=== PATIENT | female | born 1960 | race Caucasian/White ===

== ENCOUNTER 2017-02-09 17:02 | Inpatient (IN) | payer MEDICARE, MEDICAID ==
[~2017-02-09] VITALS: Ht 162.6 cm; Wt 69.8 kg
[~2017-02-09 17:02] MED LIST: ADDERALL XR20 MG PO; ALPRAZOLAM1 M3 OR; ATENOLOL25 MG PO; DILAUDID 2MG2 MG/TA1 PO; DOXEPIN HCL25 MG OR; DOXYCYCL HYC100 MG PO; HYDROCHLORO25 MG/TAB PO; HYDROCHLOROT25 MG PO; HYDROXYZ HCL25 MG PO; LITHIUM CARB300 MG PO; LYRICA50 MG PO; MELOXICAM7.5 MG PO; METHADONE HCL10 MG PO; METHADOSE10 M1 PO; OXYCOD-APAP1 TA1 PO; PHENERGAN25 MG/TAB PO; SAPHRIS5 MG SL; TRAMADOL HCL50 MG PO; TRILEPTAL150 M1 OR; TRILEPTAL300 M1 OR; XANAX1 MG PO; ZOFRAN4 MG/TAB PO
[2017-02-09] MEDS ORDERED: MELOXICAM15 MG PO (18:04)
[2017-02-09] MEDS ORDERED: NEURONTIN300 MG PO (18:14)
[2017-02-09] MEDS ORDERED: ALPRAZOLAM1 MG PO (18:14)
[2017-02-09] MEDS ORDERED: VENTOLIN H108 MCG/AC IN (18:15)
[2017-02-09] MEDS ORDERED: FUROSEMIDE20 MG PO (18:15)
[2017-02-09] MEDS ORDERED: ADDERALL XR20 MG PO (18:16)
[2017-02-09] MEDS ORDERED: TEMAZEPAM30 MG PO (18:17)
[2017-02-09] MEDS ORDERED: VIIBRYD40 MG PO (18:17)
[2017-02-09] MEDS ORDERED: SIMVASTATIN20 MG PO (18:17)
[2017-02-09] MEDS ORDERED: EMBEDA 30-1.2 M1 CAP PO (18:18)
[2017-02-09 18:37] LABS: HEMATOCRIT 23.5 % (37.0-47.0); HEMOGLOBIN 7.3 g/dl (12.0-16.0); IMMATURE GRANULOCYTES 0.3 % (0.0-1.0); MEAN CELL VOLUME 91.1 fL CALC (80.0-100.0); MEAN CORPUSCULAR HGB 28.3 pG CALC (26.0-32.0); MEAN CORPUSCULAR HGB CONC 31.1 g/L CALC (32.0-36.0); NEUT# 5.06 thou/uL (2.00-7.15); RED BLOOD COUNT 2.58 mill/uL (4.20-5.60); RED CELL DISTRI WIDTH 15.7 % (11.5-15.5)
[2017-02-09 18:39] LABS: URINE BILIRUBIN - DIPSTICK NEGATIVE (NEGATIVE); URINE BLOOD DIPSTICK NEGATIVE (NEGATIVE); URINE CLARITY CLEAR; URINE COLOR YELLOW; URINE GLUCOSE - DIPSTICK NEGATIVE (NEGATIVE); URINE KETONE NEGATIVE (NEGATIVE); URINE LEUK ESTERASE NEGATIVE (NEGATIVE); URINE NITRITE - DIPSTICK NEGATIVE (Negative); URINE PROTEIN - DIPSTICK NEGATIVE (NEG-TRACE); URINE UROBILINOGEN - DIPSTICK 0.2 E.U./dL (0.2)
[2017-02-09 18:43] LABS: COCAINE NEGATIVE (NEGATIVE); METHADONE NEGATIVE (NEGATIVE); TETRAHYDROCANNABIONOL NEGATIVE (NEGATIVE)
[2017-02-09 18:44] LABS: BARBITURATES NEGATIVE (NEGATIVE); OXCYCODONE NEGATIVE (NEGATIVE); TRICYLIC ANTIDEPRESSANTS NEGATIVE (NEGATIVE)
[2017-02-09 18:49] LABS: INTERNATIONAL NORMALIZED RATIO 0.9 RATIO (0.7-1.3); PROTHROMBIN TIME 10.2 SECONDS (9.0-12.5)
[2017-02-09 18:50] LABS: ALBUMIN 4.3 g/dL (3.2-5.0); ALKALINE PHOSPHATASE 164 u/l (38-126); ANION GAP 13 (6-22 (CALC)); BILIRUBIN, TOTAL 0.2 mg/dL (0.0-1.4); BUN 12 mg/dL (7-17); BUN/CREATININE RATIO 12 (12-20 (CALC)); CALCIUM 9.4 mg/dL (8.4-10.2); CARBON DIOXIDE 23 mmol/l (22-30); CHLORIDE 104 mmol/l (95-108); GFR 58 ML/MIN (>=60 (CALC)); GFR FOR AFR.AMER. > 60 ML/MIN (>=60 (CALC)); GLUCOSE 103 mg/dL (65-105); POTASSIUM 4.4 mmol/l (3.5-5.1); SGOT/AST 23 u/l (14-36); SGPT/ALT 26 u/l (9-52); SODIUM 135 mmol/l (137-146); TOTAL PROTEIN 7.5 g/dL (6.3-8.2)
[2017-02-09 18:58] LABS: MYOGLOBIN 32 ng/mL (0 - 62)
[2017-02-09 19:49] LABS: HEMATOCRIT 22.9 % (37.0-47.0); HEMOGLOBIN 7.1 g/dl (12.0-16.0)
[2017-02-09 22:44] VITALS: BP 131/76
[2017-02-09 22:55] VITALS: BP 141/75
[2017-02-09 23:26] VITALS: BP 114/69
[2017-02-10] VITALS (11 sets, daily range): BP systolic 103–149; BP diastolic 44–82
[2017-02-10 09:22] LABS: HEMATOCRIT 37.8 % (37.0-47.0); HEMOGLOBIN 12.5 g/dl (12.0-16.0); MEAN CELL VOLUME 85.1 fL CALC (80.0-100.0); MEAN CORPUSCULAR HGB 28.2 pG CALC (26.0-32.0); MEAN CORPUSCULAR HGB CONC 33.1 g/L CALC (32.0-36.0); RED BLOOD COUNT 4.44 mill/uL (4.20-5.60)
[2017-02-10 10:35] LABS: ANION GAP 16 (6-22 (CALC)); BUN 11 mg/dL (7-17); BUN/CREATININE RATIO 13 (12-20 (CALC)); CALCIUM 9.5 mg/dL (8.4-10.2); CARBON DIOXIDE 26 mmol/l (22-30); CHLORIDE 100 mmol/l (95-108); CREATININE 0.8 mg/dL (0.5-1.0); GFR > 60 ML/MIN (>=60 (CALC)); GFR FOR AFR.AMER. > 60 ML/MIN (>=60 (CALC)); GLUCOSE 108 mg/dL (65-105); MAGNESIUM 1.8 mg/dL (1.6-2.3); POTASSIUM 4.5 mmol/l (3.5-5.1); SODIUM 138 mmol/l (137-146)
[2017-02-10] MEDS ORDERED: PRILOSEC20 MG PO (13:41)
[2017-02-10] MEDS ORDERED: MIRALAX3350 NF PO (13:41)
[2017-02-10] MEDS ORDERED: FERROUS SULF325 M2 PO (13:41)
[2017-02-10] MEDS ORDERED: COLACE100 MG PO (13:41)
[2017-02-10 14:24] LABS: HEMATOCRIT 37.2 % (37.0-47.0)
== END 2017-02-10 16:05 | disposition home or self-care (01) | DRG 812 ==
LOC: ENPENDDIS → ED 17:02 → ED-I 20:20 → ED 20:54 → MS2 20:55
PROVIDERS: Emergency Medicine; Internal Medicine; ADMIT Internal Medicine; ATTEND Internal Medicine
PROC: 30233N1 Transfusion of Nonautologous Red Blood Cells into Peripheral Vein, Percutaneous Approach (ICD-10-PCS; principal; 2017-02-09)
PROC: 30233N1 Transfusion of Nonautologous Red Blood Cells into Peripheral Vein, Percutaneous Approach (ICD-10-PCS; 2017-02-10)
PROC: 30233N1 Transfusion of Nonautologous Red Blood Cells into Peripheral Vein, Percutaneous Approach (ICD-10-PCS; 2017-02-10)
DX: D50.0 Iron deficiency anemia secondary to blood loss (chronic) (principal); N17.9 Acute kidney failure, unspecified; E87.1 Hypo-osmolality and hyponatremia; M41.9 Scoliosis, unspecified; K92.1 Melena; K59.00 Constipation, unspecified; F41.1 Generalized anxiety disorder; F32.9 Major depressive disorder, single episode, unspecified; M54.30 Sciatica, unspecified side; M19.90 Unspecified osteoarthritis, unspecified site; G89.4 Chronic pain syndrome; E86.1 Hypovolemia; F17.210 Nicotine dependence, cigarettes, uncomplicated; Z76.5 Malingerer [conscious simulation]
CPT/HCPCS: J1756; P9016

== ENCOUNTER 2017-02-14 19:49 | Emergency (ER) | payer MEDICARE, MEDICAID ==
[~2017-02-14] VITALS: Ht 162.6 cm; Wt 69.4 kg
[~2017-02-14 19:49] MED LIST changes: +ALPRAZOLAM1 MG PO; +COLACE100 MG PO; +EMBEDA 30-1.2 M1 CAP PO; +FERROUS SULF325 M2 PO; +FUROSEMIDE20 MG PO; +MELOXICAM15 MG PO; +MIRALAX3350 NF PO; +NEURONTIN300 MG PO; +PRILOSEC20 MG PO; +SIMVASTATIN20 MG PO; +TEMAZEPAM30 MG PO; +VENTOLIN H108 MCG/AC IN; +VIIBRYD40 MG PO
[2017-02-14 20:54] LABS: HEMATOCRIT 38.2 % (37.0-47.0); IMMATURE GRANULOCYTES 0.2 % (0.0-1.0); MEAN CELL VOLUME 89.3 fL CALC (80.0-100.0); MEAN CORPUSCULAR HGB CONC 31.4 g/L CALC (32.0-36.0); NEUT# 2.97 thou/uL (2.00-7.15); RED BLOOD COUNT 4.28 mill/uL (4.20-5.60); RED CELL DISTRI WIDTH 16.6 % (11.5-15.5)
[2017-02-14 21:08] LABS: ALBUMIN 4.4 g/dL (3.2-5.0); ALKALINE PHOSPHATASE 127 u/l (38-126); ANION GAP 15 (6-22 (CALC)); BILIRUBIN, TOTAL 0.3 mg/dL (0.0-1.4); BUN 11 mg/dL (7-17); BUN/CREATININE RATIO 15 (12-20 (CALC)); CALCIUM 9.8 mg/dL (8.4-10.2); CARBON DIOXIDE 26 mmol/l (22-30); CHLORIDE 103 mmol/l (95-108); CREATININE 0.8 mg/dL (0.5-1.0); GFR > 60 ML/MIN (>=60 (CALC)); GFR FOR AFR.AMER. > 60 ML/MIN (>=60 (CALC)); GLUCOSE 85 mg/dL (65-105); POTASSIUM 3.5 mmol/l (3.5-5.1); SGOT/AST 21 u/l (14-36); SGPT/ALT 29 u/l (9-52); SODIUM 141 mmol/l (137-146); TOTAL PROTEIN 7.8 g/dL (6.3-8.2)
[2017-02-14 21:33] VITALS: BP 110/62
== END 2017-02-14 21:39 | disposition home or self-care (01) ==
LOC: ED 19:49
PROVIDERS: Emergency Medicine
DX: R53.1 Weakness (principal); D64.9 Anemia, unspecified; G89.4 Chronic pain syndrome; F17.210 Nicotine dependence, cigarettes, uncomplicated

== ENCOUNTER 2017-02-21 11:51 | Emergency (ER) | payer MEDICARE, MEDICAID | END 2017-02-21 12:05 | disposition left against medical advice (07) | LOC: ED 11:51 → LWOBS 12:05 | DX: Z91.19 Patient's noncompliance with other medical treatment and regimen (principal) ==

== ENCOUNTER 2017-03-29 14:48 | Inpatient (IN) | payer MEDICARE, MEDICAID ==
[~2017-03-29] VITALS: Ht 160 cm; Wt 70.4 kg
[~2017-03-29 14:48] MED LIST changes: -DILAUDID 2MG2 MG/TA1 PO; +DILAUDID4 MG PO
[2017-03-29 15:09] LABS: HEMATOCRIT 38.8 % (37.0-47.0); HEMOGLOBIN 12.4 g/dl (12.0-16.0); IMMATURE GRANULOCYTES 0.2 % (0.0-1.0); MEAN CELL VOLUME 90.2 fL CALC (80.0-100.0); MEAN CORPUSCULAR HGB 28.8 pG CALC (26.0-32.0); NEUT# 1.65 thou/uL (2.00-7.15); RED BLOOD COUNT 4.3 mill/uL (4.20-5.60); RED CELL DISTRI WIDTH 18.1 % (11.5-15.5)
[2017-03-29 15:24] LABS: ALBUMIN 4.2 g/dL (3.2-5.0); ALKALINE PHOSPHATASE 123 u/l (38-126); ANION GAP 19 (6-22 (CALC)); BILIRUBIN, TOTAL 0.3 mg/dL (0.0-1.4); BUN 6 mg/dL (7-17); BUN/CREATININE RATIO 7 (12-20 (CALC)); CALCIUM 9.1 mg/dL (8.4-10.2); CARBON DIOXIDE 27 mmol/l (22-30); CHLORIDE 104 mmol/l (95-108); ETHYL ALCOHOL 171 mg/dl (0-30); GFR 58 ML/MIN (>=60 (CALC)); GFR FOR AFR.AMER. > 60 ML/MIN (>=60 (CALC)); GLUCOSE 98 mg/dL (65-105); POTASSIUM 3.9 mmol/l (3.5-5.1); SGOT/AST 23 u/l (14-36); SGPT/ALT 28 u/l (9-52); SODIUM 146 mmol/l (137-146); TOTAL PROTEIN 7.4 g/dL (6.3-8.2)
[2017-03-29 15:35] LABS: MYOGLOBIN 41 ng/mL (0 - 62)
[2017-03-29 15:56] LABS: URINE BILIRUBIN - DIPSTICK NEGATIVE (NEGATIVE); URINE BLOOD DIPSTICK NEGATIVE (NEGATIVE); URINE CLARITY CLEAR; URINE COLOR YELLOW; URINE GLUCOSE - DIPSTICK NEGATIVE (NEGATIVE); URINE KETONE NEGATIVE (NEGATIVE); URINE LEUK ESTERASE NEGATIVE (NEGATIVE); URINE NITRITE - DIPSTICK NEGATIVE (Negative); URINE PROTEIN - DIPSTICK NEGATIVE (NEG-TRACE); URINE SPECIFIC GRAVITY <=1.005; URINE UROBILINOGEN - DIPSTICK 0.2 E.U./dL (0.2)
[2017-03-29 16:00] LABS: BARBITURATES NEGATIVE (NEGATIVE); COCAINE NEGATIVE (NEGATIVE); METHADONE NEGATIVE (NEGATIVE); OXCYCODONE NEGATIVE (NEGATIVE); TETRAHYDROCANNABIONOL NEGATIVE (NEGATIVE); TRICYLIC ANTIDEPRESSANTS NEGATIVE (NEGATIVE)
[2017-03-29 21:47] VITALS: BP 148/87
[2017-03-29 23:50] VITALS: BP 117/77
[2017-03-30 03:55] VITALS: BP 140/78
[2017-03-30 07:20] VITALS: BP 141/83
[2017-03-30 08:22] VITALS: BP 141/83
== END 2017-03-30 10:00 | disposition home or self-care (01) | DRG 315 ==
LOC: ED 14:48 → ED-I 19:49 → ED 21:06 → ICU 21:07
PROVIDERS: Emergency Medicine; ADMIT Internal Medicine; ATTEND Internal Medicine
PROC: 0T9B70Z Drainage of Bladder with Drainage Device, Via Natural or Artificial Opening (ICD-10-PCS; principal; 2017-03-29)
DX: I95.9 Hypotension, unspecified (principal); E87.2 Acidosis; F10.129 Alcohol abuse with intoxication, unspecified; I10 Essential (primary) hypertension; D50.9 Iron deficiency anemia, unspecified; F32.9 Major depressive disorder, single episode, unspecified; E86.0 Dehydration; F17.210 Nicotine dependence, cigarettes, uncomplicated; J44.9 Chronic obstructive pulmonary disease, unspecified; G47.30 Sleep apnea, unspecified; E78.5 Hyperlipidemia, unspecified; K21.9 Gastro-esophageal reflux disease without esophagitis; G89.4 Chronic pain syndrome; Y90.6 Blood alcohol level of 120-199 mg/100 ml

== ENCOUNTER 2017-04-27 16:55 | Emergency (ER) | payer MEDICARE, MEDICAID ==
[~2017-04-27] VITALS: Ht 160 cm; Wt 70.0 kg
[2017-04-27 17:07] VITALS: BP 60/35
== END 2017-04-27 17:10 | disposition left against medical advice (07) ==
LOC: ED 16:55 → LWOBS 17:10
DX: Z91.19 Patient's noncompliance with other medical treatment and regimen (principal)

== ENCOUNTER 2017-09-12 11:05 | Emergency (ER) | payer MEDICARE, MEDICAID ==
[~2017-09-12] VITALS: Ht 160 cm; Wt 70.4 kg
[2017-09-12 11:12] VITALS: BP 1212/69
== END 2017-09-12 11:22 | disposition left against medical advice (07) ==
LOC: ED 11:05 → LWOBS 11:22
DX: Z91.19 Patient's noncompliance with other medical treatment and regimen (principal)

== ENCOUNTER 2017-12-16 13:42 | Inpatient (IN) | payer MEDICARE, MEDICAID ==
[~2017-12-16] VITALS: Ht 160 cm; Wt 66.4 kg
[2017-12-16 14:46] LABS: HEMATOCRIT 40.2 % (37.0-47.0); HEMOGLOBIN 14.1 g/dl (12.0-16.0); IMMATURE GRANULOCYTES 0.7 % (0.0-1.0); MEAN CORPUSCULAR HGB 32.1 pG CALC (26.0-32.0); MEAN CORPUSCULAR HGB CONC 35.1 g/L CALC (32.0-36.0); NEUT# 6.03 thou/uL (2.00-7.15); RED BLOOD COUNT 4.39 mill/uL (4.20-5.60); RED CELL DISTRI WIDTH 12.4 % (11.5-15.5)
[2017-12-16 14:55] LABS: ALBUMIN 4.9 g/dL (3.2-5.0); ALKALINE PHOSPHATASE 161 u/l (38-126); BILIRUBIN, TOTAL 1.2 mg/dL (0.0-1.4); BUN 10 mg/dL (7-17); BUN/CREATININE RATIO 16 (12-20 (CALC)); CREATININE 0.6 mg/dL (0.5-1.0); GFR > 60 ML/MIN (>=60 (CALC)); GFR FOR AFR.AMER. > 60 ML/MIN (>=60 (CALC)); SGPT/ALT 91 u/l (9-52); TOTAL PROTEIN 8.4 g/dL (6.3-8.2)
[2017-12-16 14:57] LABS: SODIUM 126 mmol/l (137-146)
[2017-12-16 14:58] LABS: ANION GAP 29 (6-22 (CALC)); CARBON DIOXIDE 13 mmol/l (22-30); CHLORIDE 87 mmol/l (95-108); POTASSIUM 3.1 mmol/l (3.5-5.1); SGOT/AST 116 u/l (14-36)
[2017-12-16 15:10] LABS: MEAN CELL VOLUME 91.6 fL CALC (80.0-100.0)
[2017-12-16 15:22] LABS: BARBITURATES NEGATIVE (NEGATIVE); COCAINE NEGATIVE (NEGATIVE); METHADONE NEGATIVE (NEGATIVE); OXCYCODONE NEGATIVE (NEGATIVE); TETRAHYDROCANNABIONOL NEGATIVE (NEGATIVE); TRICYLIC ANTIDEPRESSANTS NEGATIVE (NEGATIVE)
[2017-12-16 18:20] VITALS: BP 135/90
[2017-12-16 20:19] LABS: MAGNESIUM 1.7 mg/dL (1.6-2.3)
[2017-12-16 20:27] LABS: CHOLESTEROL HDL RATIO 1.5 (<4.4 (CALC))
[2017-12-16 22:00] VITALS: BP 107/74
[2017-12-17 04:26] VITALS: BP 108/78
[2017-12-17 05:02] LABS: IMMATURE GRANULOCYTES 0.2 % (0.0-1.0); MEAN CELL VOLUME 91.5 fL CALC (80.0-100.0); MEAN CORPUSCULAR HGB 32.5 pG CALC (26.0-32.0); MEAN CORPUSCULAR HGB CONC 35.5 g/L CALC (32.0-36.0); NEUT# 3.37 thou/uL (2.00-7.15); RED BLOOD COUNT 3.63 mill/uL (4.20-5.60); RED CELL DISTRI WIDTH 12.6 % (11.5-15.5)
[2017-12-17 05:19] LABS: BUN 7 mg/dL (7-17); BUN/CREATININE RATIO 17 (12-20 (CALC)); CREATININE 0.4 mg/dL (0.5-1.0); GFR > 60 ML/MIN (>=60 (CALC)); GFR FOR AFR.AMER. > 60 ML/MIN (>=60 (CALC)); MAGNESIUM 1.8 mg/dL (1.6-2.3); POTASSIUM 3.3 mmol/l (3.5-5.1)
[2017-12-17 05:25] LABS: ANION GAP 15 (6-22 (CALC))
[2017-12-17 05:26] LABS: CARBON DIOXIDE 23 mmol/l (22-30); CHLORIDE 98 mmol/l (95-108); SODIUM 133 mmol/l (137-146)
[2017-12-17 05:45] LABS: HEMOGLOBIN 11.8 g/dl (12.0-16.0)
[2017-12-17 05:46] LABS: HEMATOCRIT 33.2 % (37.0-47.0)
[2017-12-17 08:07] VITALS: BP 115/76
[2017-12-17 11:00] VITALS: BP 105/70
[2017-12-17 17:59] VITALS: BP 116/79
[2017-12-17 20:25] VITALS: BP 105/80
[2017-12-18 00:45] VITALS: BP 98/68
[2017-12-18 04:40] VITALS: BP 99/69
[2017-12-18 06:24] LABS: HEMATOCRIT 33.6 % (37.0-47.0); HEMOGLOBIN 11.6 g/dl (12.0-16.0); MEAN CELL VOLUME 93.6 fL CALC (80.0-100.0); MEAN CORPUSCULAR HGB 32.3 pG CALC (26.0-32.0); MEAN CORPUSCULAR HGB CONC 34.5 g/L CALC (32.0-36.0); NEUT# 1.54 thou/uL (2.00-7.15); RED BLOOD COUNT 3.59 mill/uL (4.20-5.60); RED CELL DISTRI WIDTH 12.7 % (11.5-15.5)
[2017-12-18 06:43] LABS: ALKALINE PHOSPHATASE 123 u/l (38-126); ANION GAP 16 (6-22 (CALC)); BILIRUBIN, TOTAL 0.4 mg/dL (0.0-1.4); BUN 8 mg/dL (7-17); BUN/CREATININE RATIO 18 (12-20 (CALC)); CARBON DIOXIDE 25 mmol/l (22-30); CHLORIDE 98 mmol/l (95-108); CREATININE 0.4 mg/dL (0.5-1.0); GFR > 60 ML/MIN (>=60 (CALC)); GFR FOR AFR.AMER. > 60 ML/MIN (>=60 (CALC)); MAGNESIUM 1.5 mg/dL (1.6-2.3); POTASSIUM 3.3 mmol/l (3.5-5.1); SGOT/AST 65 u/l (14-36); SGPT/ALT 66 u/l (9-52); SODIUM 136 mmol/l (137-146)
[2017-12-18 06:46] LABS: TOTAL PROTEIN 6.3 g/dL (6.3-8.2)
[2017-12-18 06:47] LABS: ALBUMIN 3.6 g/dL (3.2-5.0)
[2017-12-18 07:10] LABS: TSH, 3RD GENERATION 2.28 uIU/mL (0.47 - 4.68)
[2017-12-18 07:45] VITALS: BP 100/77
[2017-12-18] MEDS ORDERED: FLORASTOR250 M1 PO (10:38)
[2017-12-18 11:53] VITALS: BP 101/67
[2017-12-18] MEDS ORDERED: POT CHLORIDE20 ME3 PO (14:25)
[2017-12-18] MEDS ORDERED: MAGNESIUM400 M1 PO (14:32)
[2017-12-18] MEDS ORDERED: KLOR-CON M2020 MEQ PO (14:38)
== END 2017-12-18 14:50 | disposition home or self-care (01) | DRG 641 ==
LOC: ED 13:42 → ED-I 17:00 → ED 17:39 → MS2 17:40
PROVIDERS: Emergency Medicine; Nurse Practitioner Family; ADMIT Internal Medicine; ATTEND Internal Medicine
DX: E87.6 Hypokalemia (principal); E87.1 Hypo-osmolality and hyponatremia; E86.0 Dehydration; D69.6 Thrombocytopenia, unspecified; E87.3 Alkalosis; R19.7 Diarrhea, unspecified; E83.52 Hypercalcemia; I10 Essential (primary) hypertension; J44.9 Chronic obstructive pulmonary disease, unspecified; E78.5 Hyperlipidemia, unspecified; K76.0 Fatty (change of) liver, not elsewhere classified; M41.9 Scoliosis, unspecified; F32.9 Major depressive disorder, single episode, unspecified; F43.10 Post-traumatic stress disorder, unspecified; F17.210 Nicotine dependence, cigarettes, uncomplicated; G47.30 Sleep apnea, unspecified; G89.4 Chronic pain syndrome; R00.0 Tachycardia, unspecified; D64.9 Anemia, unspecified; Z79.899 Other long term (current) drug therapy; Z86.010 Personal history of colon polyps
CPT/HCPCS: Q9967

== ENCOUNTER 2018-07-31 17:30 | Emergency (ER) | payer MEDICARE, MEDICAID ==
[~2018-07-31] VITALS: Ht 160 cm; Wt 59.1 kg
[~2018-07-31 17:30] MED LIST changes: +FLORASTOR250 M1 PO; +KLOR-CON M2020 MEQ PO; +MAGNESIUM400 M1 PO; +POT CHLORIDE20 ME3 PO
[2018-07-31] MEDS ORDERED: TRAZODONE50 MG PO (18:18)
[2018-07-31] MEDS ORDERED: HYDROMORPHONE HC2 MG PO (18:18)
[2018-07-31] MEDS ORDERED: FERROUS SULF324 M1 PO (18:19)
[2018-07-31] MEDS ORDERED: PRAZOSIN HCL2 M1 PO (18:20)
[2018-07-31] MEDS ORDERED: OXYBUTYNIN CHLOR5 M1 PO (18:21)
[2018-07-31] MEDS ORDERED: DEX PO (18:22)
[2018-07-31] MEDS ORDERED: AMPHETAMINE PO (18:22)
[2018-07-31 19:05] VITALS: BP 128/82
== END 2018-07-31 19:05 | disposition home or self-care (01) ==
LOC: ED 17:30
DX: S93.402A Sprain of unspecified ligament of left ankle, initial encounter (principal); F17.210 Nicotine dependence, cigarettes, uncomplicated; W17.2XXA Fall into hole, initial encounter; Y92.007 Garden or yard of unspecified non-institutional (private) residence as the place of occurrence of the external cause

== ENCOUNTER → 2018-10-05 | Outpatient (REF) | payer MEDICARE, MEDICAID ==
[~2018-10-05] MED LIST changes: +AMPHETAMINE PO; +DEX PO; +FERROUS SULF324 M1 PO; +HYDROMORPHONE HC2 MG PO; +MULTI VIT PO; +OXYBUTYNIN CHLOR5 M1 PO; +PRAZOSIN HCL2 M1 PO; +SIMVASTATIN10 MG PO; +TRAZODONE50 MG PO
== END | disposition home or self-care (01) ==
LOC: DI 10:34
PROVIDERS: ATTEND Internal Medicine Cardiovascular Disease
DX: J44.9 Chronic obstructive pulmonary disease, unspecified (principal); Z72.0 Tobacco use

== ENCOUNTER → 2018-10-05 | Outpatient (REF) | payer MEDICARE, MEDICAID ==
[~2018-10-05] VITALS: Ht 160 cm; Wt 59.0 kg
[2018-10-05 10:48] VITALS: BP 137/84
== END | disposition home or self-care (01) ==
LOC: PO 09:33 → ORM 10:00
PROVIDERS: ATTEND Surgery
DX: Z01.818 Encounter for other preprocedural examination (principal); Z12.11 Encounter for screening for malignant neoplasm of colon; Z86.2 Personal history of diseases of the blood and blood-forming organs and certain disorders involving the immune mechanism; G47.30 Sleep apnea, unspecified; Z87.828 Personal history of other (healed) physical injury and trauma; Z98.51 Tubal ligation status; Z98.890 Other specified postprocedural states; F17.210 Nicotine dependence, cigarettes, uncomplicated; Z97.2 Presence of dental prosthetic device (complete) (partial)

== ENCOUNTER 2018-10-12 08:06 | Day surgery (SDC) | payer MEDICARE, MEDICAID ==
[2018-10-12 10:34] VITALS: BP 130/89
== END 2018-10-12 10:30 | disposition home or self-care (01) ==
LOC: ENDO 08:06
PROVIDERS: ATTEND Surgery
PROC: 0DBF8ZX Excision of Right Large Intestine, Via Natural or Artificial Opening Endoscopic, Diagnostic (ICD-10-PCS; principal; 2018-10-12)
DX: Z12.11 Encounter for screening for malignant neoplasm of colon (principal); K50.10 Crohn's disease of large intestine without complications; F17.210 Nicotine dependence, cigarettes, uncomplicated; Z86.73 Personal history of transient ischemic attack (TIA), and cerebral infarction without residual deficits

== ENCOUNTER 2019-10-02 | Emergency (ER) | payer MEDICARE, MEDICAID ==
[~2019-10-02] MED LIST changes: +TRAZODONE100 MG PO; -TRAZODONE50 MG PO
[2019-10-02 12:45] LABS: GFR > 60 ML/MIN (>=60 (CALC)); GFR FOR AFR.AMER. > 60 ML/MIN (>=60 (CALC))
[2019-10-02 12:49] LABS: HEMATOCRIT 31.4 % (37.0-47.0); HEMOGLOBIN 9.8 g/dl (12.0-16.0); IMMATURE GRANULOCYTES 0.3 % (0.0-5.0); MEAN CORPUSCULAR HGB 32.8 pG CALC (26.0-32.0); MEAN CORPUSCULAR HGB CONC 31.2 g/L CALC (32.0-36.0); NEUT# 3.95 thou/uL (2.00-7.15); RED BLOOD COUNT 2.99 mill/uL (4.20-5.60); RED CELL DISTRI WIDTH 14.5 % (11.5-15.5)
[2019-10-02 12:50] LABS: ALKALINE PHOSPHATASE 118 u/l (38-126); BILIRUBIN, TOTAL 0.3 mg/dL (0.0-1.4); BUN 10 mg/dL (7-17); BUN/CREATININE RATIO 18 (12-20 (CALC)); CARBON DIOXIDE 24 mmol/l (22-30); CHLORIDE 108 mmol/l (95-108); CREATININE 0.5 mg/dL (0.5-1.0); LIPASE 168 u/l (23-300); SGOT/AST 26 u/l (14-36); SODIUM 140 mmol/l (137-146)
[2019-10-02 12:51] LABS: ANION GAP 12 (6-22 (CALC)); INTERNATIONAL NORMALIZED RATIO 0.9 RATIO (0.7-1.3); POTASSIUM 4.2 mmol/l (3.5-5.1); PROTHROMBIN TIME 9.4 SECONDS (9.0-12.5); TOTAL PROTEIN 7.8 g/dL (6.3-8.2)
[2019-10-02 12:52] LABS: ALBUMIN 4.5 g/dL (3.2-5.0)
[2020-04-22] MEDS ORDERED: OMNI-PAC300 MG PO (10:08)
== END 2019-10-02 14:49 | disposition short-term general hospital (02) ==
PROVIDERS: Family Medicine
DX: I63.9 Cerebral infarction, unspecified (principal); G81.91 Hemiplegia, unspecified affecting right dominant side; R47.81 Slurred speech; R29.709 NIHSS score 9; F17.200 Nicotine dependence, unspecified, uncomplicated

== ENCOUNTER 2019-10-11 18:49 | Observation (INO) | payer MEDICARE, MEDICAID ==
[~2019-10-11] VITALS: Ht 160 cm; Wt 61.8 kg
--- NOTE | 2019-10-11 19:02 | NUR ---
BY WC TO ROOM
--- NOTE | 2019-10-11 19:31 | NUR ---
PT ASSESSED. COVERED IN PARTIALLY DIGESTED FOOD VOMIT. DENIES ETOH USE TODAY. PT DIFFICULT TO AROUSE, SLURRED SPEACH, ETOH ODOR. ORIENTED TO SELF AND PLACE
--- NOTE | 2019-10-11 19:40 | NUR ---
PT ASSESSED. AO X 3. PATIENT CARRIER EQUAL AND STRONG. ABLE TO MOVE SELF FROM WHEELCHAIR TO STRETCHER. PT REPORTS RIGHT SIDE WEAKNESS FOR ONE WEEK. MONITORS APPLIED.
--- NOTE | 2019-10-11 19:45 | NUR ---
PT CHANGED TO GOWN. ASSISTED TO BEDSIDE COMMODE. 600ML URINE VOIDED. SPECIMEN SENT TO LAB
--- NOTE | 2019-10-11 20:54 | NUR ---
PT RESTING ON STRETCHER AWAITING LAB RESULTS
[2019-10-11 20:56] LABS: HEMATOCRIT 28.6 % (37.0-47.0); HEMOGLOBIN 8.8 g/dl (12.0-16.0); IMMATURE GRANULOCYTES 0.2 % (0.0-5.0); MEAN CELL VOLUME 104.8 fL CALC (80.0-100.0); MEAN CORPUSCULAR HGB 32.2 pG CALC (26.0-32.0); MEAN CORPUSCULAR HGB CONC 30.8 g/L CALC (32.0-36.0); NEUT# 2.66 thou/uL (2.00-7.15); RED BLOOD COUNT 2.73 mill/uL (4.20-5.60); RED CELL DISTRI WIDTH 13.4 % (11.5-15.5)
[2019-10-11 20:56] LABS: URINE BILIRUBIN - DIPSTICK NEGATIVE (NEGATIVE); URINE BLOOD DIPSTICK NEGATIVE (NEGATIVE); URINE COLOR YELLOW; URINE GLUCOSE - DIPSTICK NEGATIVE (NEGATIVE); URINE KETONE NEGATIVE (NEGATIVE); URINE LEUK ESTERASE NEGATIVE (NEGATIVE); URINE NITRITE - DIPSTICK NEGATIVE (Negative); URINE PROTEIN - DIPSTICK NEGATIVE (NEG-TRACE); URINE SPECIFIC GRAVITY <=1.005; URINE UROBILINOGEN - DIPSTICK 0.2 E.U./dL (0.2)
[2019-10-11 20:59] LABS: BARBITURATES NEGATIVE (NEGATIVE); COCAINE NEGATIVE (NEGATIVE); METHADONE NEGATIVE (NEGATIVE); OXCYCODONE NEGATIVE (NEGATIVE); TETRAHYDROCANNABIONOL NEGATIVE (NEGATIVE); TRICYLIC ANTIDEPRESSANTS NEGATIVE (NEGATIVE)
[2019-10-11 21:14] LABS: ACT PARTIAL THROMBO TIME 23.6 SECONDS (20.0-32.5); INTERNATIONAL NORMALIZED RATIO 0.9 RATIO (0.7-1.3); PROTHROMBIN TIME 9.6 SECONDS (9.0-12.5)
[2019-10-11 21:16] LABS: ALBUMIN 3.7 g/dL (3.2-5.0); ALKALINE PHOSPHATASE 97 u/l (38-126); ANION GAP 12 (6-22 (CALC)); BUN 11 mg/dL (7-17); BUN/CREATININE RATIO 19 (12-20 (CALC)); CARBON DIOXIDE 25 mmol/l (22-30); CHLORIDE 108 mmol/l (95-108); CREATININE 0.6 mg/dL (0.5-1.0); ETHYL ALCOHOL 0 mg/dl (0-30); GFR > 60 ML/MIN (>=60 (CALC)); GFR FOR AFR.AMER. > 60 ML/MIN (>=60 (CALC)); POTASSIUM 3.8 mmol/l (3.5-5.1); SGOT/AST 20 u/l (14-36); SODIUM 141 mmol/l (137-146); TOTAL PROTEIN 6.4 g/dL (6.3-8.2)
[2019-10-11 21:27] LABS: MYOGLOBIN 14 ng/mL (0 - 62)
[2019-10-11] MEDS ORDERED: XANAX1 MG PO (21:29)
[2019-10-11] MEDS ORDERED: PRILOSEC20 MG/CAP PO (21:30)
[2019-10-11] MEDS ORDERED: OXYBUTININ PO (21:31)
[2019-10-11] MEDS ORDERED: MINIPRESS2 M1 PO (21:33)
[2019-10-11 21:35] LABS: BILIRUBIN, TOTAL 0.1 mg/dL (0.0-1.4)
[2019-10-11] MEDS ORDERED: PERCOCET 5/325M1 TAB PO (21:35)
--- NOTE | 2019-10-11 21:35 | NUR ---
MED REC DONE. PT REPORTS FEELING HUNGRY. GIVEN SANDWICH AND WATER
[2019-10-11 21:45] LABS: TSH, 3RD GENERATION 0.91 uIU/mL (0.47 - 4.68)
[2019-10-12 00:10] VITALS: BP 108/77
--- NOTE | 2019-10-12 00:25 | NUR ---
Admission Note Report Given to: BERENICE MUNIZ Transported by: Wheelchair Stretcher Transported with: Y Nurse Transporter Y Patent IV O2 Fur Grader Location: ICU Y [facility]2 PT TRANSPORTED TO ROOM VIA STRETCHER
[2019-10-12 04:00] VITALS: BP 104/62
--- NOTE | 2019-10-12 04:01 | NUR ---
PATIENT APPEARS SLEEPING POSITIONED ON HER RIGHT SIDE. EYES CLOSED AND RESPS ARE EVEN AND UNLABORED. CALL LIGHT IN REACH. WILL CONT TO MONITOR.
--- NOTE | 2019-10-12 07:00 | NUR ---
REPORT RECEIVED FROM FLAVIO NG;PT APPEARS TO BE SLEEPING IN SUPINE POSITION;NO S/S OF DISTRESS NOTED;RESPIRATIONS EVEN AND UNLABORED ON RA;ALL SAFETY PRECAUTIONS IN PLACE WITH BED IN THE LOWEST POSITION AND CALL LIGHT IN REACH;WILL CONTINUE TO MONITOR
[2019-10-12 09:11] VITALS: BP 103/66
--- NOTE | 2019-10-12 10:05 | NUR ---
PT RESTING IN SEMI FOWLERS POSITION WATCHING TV,A&O X3;VS OBTAINED AND ASSESSMENT COMPLETED;PT DENIES ANY CURRENT PAIN OR DISCOMFORTS,PAIN SCALE AND REPORTING EDUCATED;RESPIRATIONS EVEN AND UNLABORED ON RA,CLEAR LUNG SOUNDS;ABDOMEN SOFT ON PALPATION AND ACTIVE IN ALL 4 QUADRANTS;WEAK PEDAL PULSES;SKIN INTACT;#20G TO LAC FLUSHED AND PATENT,SITE APPEARS HEALTHY;PT DENIES ANY ADDITIONAL NEEDS AND IS ENCOURAGED TO CALL FOR ASSISTANCE IF NEEDED;FALL PRECAUTIONS IN PLACE WITH CALL LIGHT IN REACH;WILL CONTINUE TO MONITOR
--- NOTE | 2019-10-12 11:32 | NUR ---
AT BEDSIDE DISCUSSING POC WITH PT.
--- NOTE | 2019-10-12 12:25 | NUR ---
PT RESTING IN SEMI FOWLERS POSITION;RESPIRATIONS EVEN AND UNLABORED ON RA;PT DENIES ANY CURRENT PAIN OR DISCOMFORTS;IV SITE PATENT;PT MEDICATED WITH PRN XANAX 1MG PO PER REQUEST;ASSESSMENT REMAINS UNCHANGED AT THIS TIME;ENCOURAGED TO CALL FOR ASSISTANCE IF NEEDED;FALL PRECAUTIONS IN PLACE WITH CALL LIGHT IN REACH;WILL CONTINUE TO MONITOR
[2019-10-12] MEDS ORDERED: PREGABALIN50 MG PO (12:35)
[2019-10-12] MEDS ORDERED: PROTONIX40 M2 PO (12:40)
--- NOTE | 2019-10-12 13:20 | NUR ---
PHYSICAL THERAPY WORKING WITH PT.
[2019-10-12 15:26] VITALS: BP 108/63
--- NOTE | 2019-10-12 15:45 | NUR ---
PT RESTING IN SEMI FOWLERS POSITION;RESPIRATIONS EVEN AND UNLABORED ON RA;PT DENIES ANY CURRENT PAIN OR NEEDS;IV SITE PATENT;PT DENIES ANY ADDITIONAL NEEDS AT THIS TIME;ENCOURAGED TO CALL FOR ASSISTANCE IF NEEDED;FALL PRECAUTIONS IN PLACE WITH CALL LIGHT IN REACH;WILL CONTINUE TO MONITOR
[2019-10-12 19:00] VITALS: BP 127/81
--- NOTE | 2019-10-12 19:00 | NUR ---
REPORT RECEIVED FROM ZBIGNIEW CASTRO. PT RESTING IN BED. RESPIRATIONS EVEN AND UNLABORED ON RA. NO S/S OF DISTRESS AT THIS TIME. SAFETY PRECAUTIONS IN PLACE. WILL CONTINUE TO MONITOR.
--- NOTE | 2019-10-12 19:55 | NUR ---
PT RESTING IN BEB, ALERT AND ORIENTED. RESPIRATIONS EVEN AND UNLABORED ON RA. LUNGS SOUND CLEAR DIMINISHED. PEDAL PULSES STRONG. #20 LAC APPEARS HEALTHY. SAFETY PRECAUTIONS IN PLACE. WILL CONTINUE TO MONITOR.
--- NOTE | 2019-10-13 00:27 | NUR ---
PT RESTING IN BED. RESPIRATIONS EVEN AND UNLABORED ON RA. NO S/S OF DISTRESS AT THIS TIME. SAFETY PRECAUTIONS IN PLACE. WILL CONTINEU TO CHLOEIOR.
[2019-10-13 04:00] VITALS: BP 117/84
--- NOTE | 2019-10-13 04:00 | NUR ---
LAB AT BEDSIDE
[2019-10-13 05:23] LABS: HEMATOCRIT 29.9 % (37.0-47.0); HEMOGLOBIN 9.4 g/dl (12.0-16.0); MEAN CELL VOLUME 102.7 fL CALC (80.0-100.0); MEAN CORPUSCULAR HGB 32.3 pG CALC (26.0-32.0); MEAN CORPUSCULAR HGB CONC 31.4 g/L CALC (32.0-36.0); RED BLOOD COUNT 2.91 mill/uL (4.20-5.60)
[2019-10-13 05:41] LABS: ANION GAP 9 (6-22 (CALC)); BUN 13 mg/dL (7-17); BUN/CREATININE RATIO 22 (12-20 (CALC)); CARBON DIOXIDE 27 mmol/l (22-30); CHLORIDE 104 mmol/l (95-108); CREATININE 0.6 mg/dL (0.5-1.0); GFR > 60 ML/MIN (>=60 (CALC)); GFR FOR AFR.AMER. > 60 ML/MIN (>=60 (CALC)); MAGNESIUM 1.7 mg/dL (1.6-2.3); POTASSIUM 4.1 mmol/l (3.5-5.1); SODIUM 136 mmol/l (137-146)
--- NOTE | 2019-10-13 07:30 | NUR ---
REPORT RECEIVED FROM FLAVIO RUIZ. PT SITTING UPRIGHT IN BED. DENIES PAIN. REPORTS RIGHT SIDED WEAKNESS, NOT NEW AT THIS TIME. FALL PRECAUTIONS REINFORCED. CALL LIGHT REVIEWED AND IN REACH. PLAN OF CARE DISCUSSED. PT STATES ANTICIPATION OF DISCHARGE. DISCHARGE PROCESS REVIEWED. PT STATES UNDERSTANDING.
[2019-10-13 08:30] VITALS: BP 100/64
--- NOTE | 2019-10-13 09:30 | NUR ---
IKE FARNSWORTH IN TO SEE PT. AT THIS TIME.
--- NOTE | 2019-10-13 11:00 | NUR ---
DR. STEIN IN TO SEE PT. AT THIS TIME.
--- NOTE | 2019-10-13 12:43 | NUR ---
DR. LONG IN TO SEE PT. AT THIS TIME.
--- NOTE | 2019-10-13 14:00 | NUR ---
PT. STATES HER RIDE HOME WONT BE HERE UNTIL AFTER 1700.
[2020-04-22] MEDS ORDERED: OMNI-PAC300 MG PO (10:08)
== END 2019-10-13 17:12 | disposition home or self-care (01) ==
LOC: ED 18:49 → ED-I 22:51 → ED 23:04 → MS2 23:05
PROVIDERS: Family Medicine; Nurse Practitioner Family; ADMIT Internal Medicine; ATTEND Internal Medicine
PROC: 3E0234Z Introduction of Serum, Toxoid and Vaccine into Muscle, Percutaneous Approach (ICD-10-PCS; principal; 2019-10-13)
DX: D50.9 Iron deficiency anemia, unspecified (principal); J43.9 Emphysema, unspecified; I10 Essential (primary) hypertension; G89.4 Chronic pain syndrome; F17.210 Nicotine dependence, cigarettes, uncomplicated; Z86.73 Personal history of transient ischemic attack (TIA), and cerebral infarction without residual deficits; Z23 Encounter for immunization
CPT/HCPCS: G0378; J1650

== ENCOUNTER 2020-04-21 10:35 | Emergency (ER) | payer MEDICARE, MEDICAID ==
[~2020-04-21] VITALS: Ht 160 cm; Wt 61.3 kg
[~2020-04-21 10:35] MED LIST changes: +MINIPRESS2 M1 PO; +OXYBUTININ PO; +PERCOCET 5/325M1 TAB PO; +PREGABALIN50 MG PO; +PRILOSEC20 MG/CAP PO; +PROTONIX40 M2 PO
[2020-04-21] MEDS ORDERED: OMNI-PAC300 MG PO ×3 (11:17→12:44)
[2020-04-21 12:29] VITALS: BP 118/80
[2020-04-22] MEDS ORDERED: OMNI-PAC300 MG PO (10:08)
== END 2020-04-21 12:46 | disposition home or self-care (01) ==
LOC: ED 10:35
PROC: 0HQ0XZZ Repair Scalp Skin, External Approach (ICD-10-PCS; principal; 2020-04-21)
DX: S01.01XA Laceration without foreign body of scalp, initial encounter (principal); S06.0X0A Concussion without loss of consciousness, initial encounter; M54.2 Cervicalgia; F17.200 Nicotine dependence, unspecified, uncomplicated; W01.0XXA Fall on same level from slipping, tripping and stumbling without subsequent striking against object, initial encounter; Y93.89 Activity, other specified; Y92.480 Sidewalk as the place of occurrence of the external cause